=== PATIENT | male | born 1990 | race African-American/Black ===

== ENCOUNTER 2022-02-23 14:22 | Emergency (ER) | payer OTHER ==
[2015-02-25 06:21] VITALS: BP 113/65
[~2022-02-23] VITALS: Ht 188 cm; Wt 145.6 kg
[~2022-02-23 14:22] MED LIST: ALBU2.5V8 IH
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
== END 2022-02-23 15:54 | disposition home or self-care (01) ==
LOC: ER 14:22
DX: S60.222A Contusion of left hand, initial encounter (principal); Z88.8 Allergy status to other drugs, medicaments and biological substances; V49.49XA Driver injured in collision with other motor vehicles in traffic accident, initial encounter; Y92.488 Other paved roadways as the place of occurrence of the external cause; Y93.89 Activity, other specified; Y99.8 Other external cause status
CPT/HCPCS: 73130; 99283

== ENCOUNTER 2022-04-18 21:16 | Emergency (ER) | payer SELFPAY ==
[~2022-04-18] VITALS: Ht 188 cm; Wt 150.0 kg
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
[2022-04-18 21:20] VITALS: BP 157/76
--- NOTE | 2022-04-18 22:13 | RAD ---
XR CHEST 1V History: Reason: CP / Spl. Instructions: / History: Comparison: February 24, 2015 Findings: No consolidation or pleural effusion. Normal heart size. No pneumothorax. Impression: 1. No acute cardiopulmonary process. Electronically signed by: Iker Loja DO (04/18/2022 10:10 PM) [facility]
== END 2022-04-18 22:56 | disposition home or self-care (01) ==
LOC: ER 21:16
DX: R07.89 Other chest pain (principal); E11.9 Type 2 diabetes mellitus without complications; J45.909 Unspecified asthma, uncomplicated; Z88.6 Allergy status to analgesic agent
CPT/HCPCS: 36415; 71045; 84484; 93005; 99285